=== PATIENT | female | born 1935 | race African-American/Black ===

== ENCOUNTER 2017-03-02 08:41 | Inpatient (IN) | payer MEDICARE, BC ==
[~2017-03-02] VITALS: Ht 167.6 cm; Wt 74.8 kg
[2017-03-02] MEDS ORDERED: VITAMIN D400 INTLU ORAL (08:50)
[2017-03-02] MEDS ORDERED: CITALOPRAM HBR20 M1 ORAL (08:50)
[2017-03-02] MEDS ORDERED: CLOPIDOGREL75 MG ORAL (08:50)
[2017-03-02] MEDS ORDERED: ACETAMINOPHEN120 MG RECTAL (08:50)
[2017-03-02] MEDS ORDERED: ATENOLOL50 MG ORAL (08:50)
[2017-03-02] MEDS ORDERED: QUETIAPINE FUMA50 MG ORAL (08:50)
[2017-03-02] MEDS ORDERED: VITAMIN B-12500 MC2 PO (08:50)
[2017-03-02] MEDS ORDERED: DIOVAN320 MG ORAL (08:50)
[2017-03-02] MEDS ORDERED: DONEPEZIL HCL10 M2 ORAL (08:50)
[2017-03-02] MEDS ORDERED: TYLENOL EXTRA500 MG ORAL (08:50)
[2017-03-02 08:53] VITALS: BP 158/70
[2017-03-02 09:48] VITALS: BP 152/72
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
--- NOTE | 2017-03-02 10:27 | Diagnostic Imaging Report ---
Indications: TRAUMA Technique: Two views of the right femur Comparison: None Findings: There is severe right joint arthropathy, with central joint space narrowing, extensive proliferative change, extensive subchondral sclerosis, and subchondral cysts. No acute fractures. No dislocations. There are mild degenerative changes of the right knee, with medial compartmental mild degenerative joint space narrowing and bicompartmental osteophytes. Impression: No acute bony trauma Right hip arthropathy, most likely degenerative, underlying inflammatory arthropathy not excludable-see discussion on pelvic radiograph report
[2017-03-02] MEDS: Morphine Sulfate 4mg/ml Inj IVP ONE ×2 (10:52→11:01)
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
--- NOTE | 2017-03-02 11:43 | Diagnostic Imaging Report ---
Indication: TRAUMA Technique: One view of the chest Comparison: none Findings: Lungs and pleural spaces are clear. Heart size is normal . The bones are unremarkable Impression: No acute process
[2017-03-02 12:03] LABS: BASOPHILS % (AUTO) 0.8 % (0.0-2.0); EOSINOPHILS % (AUTO) 2.4 % (0.0-3.0); LYMPHOCYTES % (AUTO) 19.9 % (20.0-45.0); MEAN CORPUSCULAR HEMOGLOBIN 29.7 PG (27.0-31.0); MEAN CORPUSCULAR HGB CONC 32.5 G/DL (32.0-36.0); MEAN CORPUSCULAR VOLUME 91 FL (80-99); MEAN PLATELET VOLUME 7.5 FL (6.5-10.1); NEUTROPHILS % (AUTO) 70.9 % (45.0-75.0); PLATELET COUNT 342 K/UL (150-450); RED BLOOD COUNT 3.91 M/UL (4.20-5.40); RED CELL DISTRIBUTION WIDTH 13.4 % (11.6-14.8); WHITE BLOOD COUNT 11.6 K/UL (4.8-10.8)
[2017-03-02 12:24] LABS: INR 0.9 (0.9-1.1); PROTHROMBIN TIME 9.8 SEC (9.30-11.50)
[2017-03-02 12:28] LABS: ALANINE AMINOTRANSFERASE 14 U/L (3-33); ALBUMIN/GLOBULIN RATIO 1.7 (1.0-2.7); ANION GAP 14 (5-15); ASPARTATE AMINO TRANSFERASE 16 U/L (5-40); CALCIUM 9.3 mg/dL (8.6-10.2); CARBON DIOXIDE 26 mEQ/L (20-30); CHLORIDE 102 mEQ/L (98-107); CREATININE 1.1 mg/dL (0.5-0.9); HEMOLYSIS 4; POTASSIUM 3.8 mEQ/L (3.4-4.9); SODIUM 142 mEQ/L (135-145); TOTAL PROTEIN 6.8 g/dL (6.6-8.7)
[2017-03-02 12:29] LABS: TROPONIN I < 0.30 ng/mL (<=0.30)
[2017-03-02 12:39] LABS: APPEARANCE,URINE CLEAR; KETONES,URINE NEGATIVE (NEGATIVE); LEUKOCYTE ESTERASE ,URINE 1+ (NEGATIVE); NITRITE,URINE NEGATIVE (NEGATIVE); PH,URINE 5 (4.5-8.0); PROTEIN,URINE NEGATIVE (NEGATIVE); UROBILINOGEN,URINE NORMAL MG/DL (0.0-1.0)
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
[2017-03-02 13:07] LABS: BACTERIA,URINE FEW /HPF; MUCUS,URINE FEW /LPF (NONE/OCC); SQUAMOUS EPITHELIAL CELL,UR FEW /LPF (NONE/OCC)
--- NOTE | 2017-03-02 14:55 | History & Physical ---
History and Physical History & Physicial he patient fell earlier today. The staff states that it was a non-syncopal fall. The patient has dementia and cannot tell us what happened. She has pain when she attempts to ambulate. The pain is more on her right side that she has bilateral hip pain. There is no head trauma. The patient is not taking blood thinners at this time. The patient is unable to give more history. According to the family she has degenerative arthritis in both hips. It's worse on the right-hand side. She has chronic pain there but usually is able to ambulate with assistance. She is unable to ambulate at this time. Allergies: Coded Allergies: MEMANTINE (Verified Allergy, Unknown, 03/02/17) seen in ER Examined- CC Right hip pain Unable to walk contusion Bradycardia Anemia OBS Depression Arthritis pre DM Plan: Hold beta blockers pain meds PT OT Warm Pack Hydrate per orders # [id number] LUIS CALVO Mar 02, 2017 14:54
[2017-03-02] MEDS ORDERED: HydrALAZINE 25mg tab ORAL PRN (15:15)
[2017-03-02 15:57] VITALS: BP 163/86
[2017-03-02] MEDS ORDERED: Haloperidol 5mg/ml Inj IM ONE (18:00)
[2017-03-02] MEDS: Donepezil 10mg tab ORAL SCH (20:50)
[2017-03-03 04:00] VITALS: BP 130/63
[2017-03-03 06:47] LABS: BASOPHILS % (AUTO) 1.1 % (0.0-2.0); EOSINOPHILS % (AUTO) 3.2 % (0.0-3.0); LYMPHOCYTES % (AUTO) 22.9 % (20.0-45.0); MEAN CORPUSCULAR HEMOGLOBIN 29.8 PG (27.0-31.0); MEAN CORPUSCULAR HGB CONC 32.4 G/DL (32.0-36.0); MEAN CORPUSCULAR VOLUME 92 FL (80-99); MONOCYTES % (AUTO) 6.2 % (1.0-10.0); NEUTROPHILS % (AUTO) 66.7 % (45.0-75.0); PLATELET COUNT 293 K/UL (150-450); RED BLOOD COUNT 3.53 M/UL (4.20-5.40); RED CELL DISTRIBUTION WIDTH 13.4 % (11.6-14.8)
[2017-03-03 06:51] LABS: HEMOGLOBIN A1C 5.7 % (< 6.0)
[2017-03-03 07:37] LABS: CHOLESTEROL 238 mg/dL (< 200); CHOLESTEROL/HDL RATIO 6.6 (3.3-4.4); CRP QUANT 1.6 mg/dL (< 0.5); LDL CHOLESTEROL (CALC.) 165 mg/dL (60-99); MAGNESIUM 1.9 mg/dL (1.7-2.5); PHOSPHORUS 3.5 mg/dL (2.5-4.8); URIC ACID 6.2 mg/dL (3.0-7.5)
[2017-03-03 07:38] LABS: TROPONIN I < 0.30 ng/mL (<=0.30)
[2017-03-03 07:44] LABS: FERRITIN 163 ng/mL (13-150)
[2017-03-03 08:00] VITALS: BP 138/76
[2017-03-03 08:37] LABS: HEMOLYSIS 4; IRON 32 ug/dL (37-145); TOTAL IRON BINDING CAPACITY 231 ug/dL (250-400)
[2017-03-03 10:33] LABS: ALANINE AMINOTRANSFERASE 12 U/L (3-33); ANION GAP 16 (5-15); ASPARTATE AMINO TRANSFERASE 15 U/L (5-40); CALCIUM 8.9 mg/dL (8.6-10.2); CARBON DIOXIDE 23 mEQ/L (20-30); CHLORIDE 103 mEQ/L (98-107); CREATININE 1.1 mg/dL (0.5-0.9); HEMOLYSIS 3; POTASSIUM 4.2 mEQ/L (3.4-4.9); SODIUM 142 mEQ/L (135-145); TOTAL PROTEIN 5.7 g/dL (6.6-8.7)
[2017-03-03] MEDS: Vitamin D 1000 IU Tab ORAL SCH (10:47)
[2017-03-03] MEDS: Haloperidol 5mg/ml Inj IM PRN (10:47)
[2017-03-03] MEDS: Losartan 50mg tab ORAL SCH (10:48)
[2017-03-03] MEDS: Citalopram 20mg Tab ORAL SCH (10:48)
--- NOTE | 2017-03-03 11:02 | General Progress Note ---
Assessment/Plan Status: stable Assessment/Plan status : Right hip pain Unable to walk contusion Bradycardia- improved Anemia- low Iron Others: OBS Depression Arthritis pre DM- HgbA1c WNL Plan: beta blockers on hold- pain meds- Ibuprofen- Gastric support Psych eval PT OT Warm Pack Hydrate per orders Subjective ROS Limited/Unobtainable: No Constitutional: Reports: malaise, weakness Allergies: Coded Allergies: MEMANTINE (Verified Allergy, Unknown, 03/02/17) Objective Last 24 Hour Vital Signs Date Time Temp Pulse Resp B/P Pulse Ox O2 Delivery O2 Flow Rate FiO2 03/03/17 10:48 138/76 03/03/17 08:00 97.3 67 18 138/76 98 Room Air 03/03/17 04:00 97.7 75 20 130/63 97 Room Air 03/02/17 15:57 97.6 61 20 163/86 98 Room Air 03/02/17 14:23 60 17 142/78 99 Room Air Intake and Output 03/02/17 03/03/17 19:00 07:00 Intake Total 100 ml 240 ml Balance 100 ml 240 ml Intake Oral 240 ml IV Total 100 ml # Voids 1 Laboratory Tests 03/02/17 11:50: White Blood Count 11.6H, Red Blood Count 3.91L, Hemoglobin 11.6L, Hematocrit 35.6L, Mean Corpuscular Volume 91, Mean Corpuscular Hemoglobin 29.7, Mean Corpuscular Hemoglobin Concent 32.5, Red Cell Distribution Width 13.4, Platelet Count 342, Mean Platelet Volume 7.5, Neutrophils (%) (Auto) 70.9, Lymphocytes (% ) (Auto) 19.9L, Monocytes (%) (Auto) 6.0, Eosinophils (%) (Auto) 2.4, Basophils (%) (Auto) 0.8, Prothrombin Time 9.8, Prothromb Time International Ratio 0.9, Activated Partial Thromboplast Time 28, Sodium Level 142, Potassium Level 3.8, Chloride Level 102, Carbon Dioxide Level 26, Anion Gap 14, Blood Urea Nitrogen 12, Creatinine 1.1H, Estimat Glomerular Filtration Rate , Glucose Level 123H, Calcium Level 9.3, Total Bilirubin 0.2, Aspartate Amino Transf (AST/SGOT) 16, Alanine Aminotransferase (ALT/SGPT) 14, Alkaline Phosphatase 72, Total Creatine Kinase 183H, Troponin I < 0.30, Pro-B-Type Natriuretic Peptide 208, Total Protein 6.8, Albumin 4.3, Globulin 2.5, Albumin/Globulin Ratio 1.7 03/02/17 12:06: Urine Color Pale yellow, Urine Appearance Clear, Urine pH 5, Urine Specific [place] 1.010, Urine Protein Negative, Urine Glucose (UA) Negative, Urine Ketones Negative, Urine Occult Blood 2+H, Urine Nitrite Negative, Urine Bilirubin Negative, Urine Urobilinogen Normal, Urine Leukocyte Esterase 1+H, Urine RBC 2-4H, Urine WBC 2-4, Urine Squamous Epithelial Cells Few, Urine Bacteria Few, Urine Mucus FewH 03/03/17 05:20: White Blood Count 9.0, Red Blood Count 3.53L, Hemoglobin 10.5L, Hematocrit 32.5L , Mean Corpuscular Volume 92, Mean Corpuscular Hemoglobin 29.8, Mean Corpuscular Hemoglobin Concent 32.4, Red Cell Distribution Width 13.4, Platelet Count 293, Mean Platelet Volume 7.0, Neutrophils (%) (Auto) 66.7, Lymphocytes (% ) (Auto) 22.9, Monocytes (%) (Auto) 6.2, Eosinophils (%) (Auto) 3.2H, Basophils (%) (Auto) 1.1, Sodium Level 142, Potassium Level 4.2, Chloride Level 103, Carbon Dioxide Level 23, Anion Gap 16H, Blood Urea Nitrogen 11, Creatinine 1.1H , Estimat Glomerular Filtration Rate , Glucose Level 110H, Calcium Level 8.9, Total Bilirubin 0.3, Aspartate Amino Transf (AST/SGOT) 15, Alanine Aminotransferase (ALT/SGPT) 12, Alkaline Phosphatase 71, Total Creatine Kinase 292H, Troponin I < 0.30, Pro-B-Type Natriuretic Peptide 226, Total Protein 5.7L , Albumin 3.8, Globulin 1.9, Albumin/Globulin Ratio 2.0, Hemoglobin A1c 5.7, Uric Acid 6.2, Phosphorus Level 3.5, Magnesium Level 1.9, Iron Level 32L, Total Iron Binding Capacity 231L, Percent Iron Saturation 14L, Unsaturated Iron Binding 199, Ferritin 163H, Gamma Glutamyl Transpeptidase 12, C-Reactive Protein , Quantitative 1.6H, Triglycerides Level 187H, Cholesterol Level 238H, LDL Cholesterol 165H, HDL Cholesterol 36, Cholesterol/HDL Ratio 6.6H, Vitamin B12 Level 1553H, Folate [Pending], Thyroid Stimulating Hormone (TSH) 2.810 Height (Feet): 5 Height (Inches): 6.00 Weight (Pounds): 165 General Appearance: no apparent distress, confused Cardiovascular: normal rate Respiratory/Chest: lungs clear Abdomen: soft, other - scars of previous surgery Extremities: other - moving and flexing right leg now LUIS CALVO Mar 03, 2017 11:02
[2017-03-03] MEDS ORDERED: Iron Sucrose 200 MG in NS 110 ML IVPB ONE (12:00)
--- NOTE | 2017-03-03 13:46 | History and Physical Report ---
DATE OF ADMISSION: 03/02/2017 HISTORY OF PRESENT ILLNESS: Son and daughter both available in section 6 of the ER room. This patient is an 81-year-old female, who lives in [place] [facility]. She has her own room. She was found on the floor and not clear how the fall happened. The patient has history of dementia and is a poor historian. The patient came into emergency room here at [facility]. She was seen by and the initial workup showed no fracture, however, contusion of the right hip area. PAST MEDICAL HISTORY: Significant for osteoarthritis of the hips and joints. Previous unknown abdominal surgeries. 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 PHYSICAL EXAMINATION: GENERAL: When the patient was seen, she was poor historian and confused. VITAL SIGNS: Temperature 97.9 degrees, pulse 59, respiratory rate 16, blood pressure 157/89, and pulse oximetry 99% on room air. HEENT: Head, normocephalic. Sclerae are not icteric. Tongue moist. NECK: Rigid to all directions. LUNGS: Clear. HEART: Regular. Bradycardia. ABDOMEN: Soft. Scars of previous surgery present. EXTREMITIES: Lower extremities, no edema. Degenerative joint disease is of the knee. The patient had pain on the right hip area up on pressure and on flexing of the knee. IMPRESSION: Status post fall, contusion of the right hip, and inability to walk. Other immediate conditions anemia and bradycardia. PLAN: Hold beta blockers. Pain medication. Continue on psychiatric medication two prevent syndrome. Warm pack on the right hip area. Slow hydration. Monitor CBC and chemistries. PT/OT evaluation and according to how the patient's condition evolves, we will make the proper changes in our future management. Silvano Butler M.D. DR: BARBARA JOB#: [id number] CC:
[2017-03-03 20:00] VITALS: BP 130/70
[2017-03-03] MEDS: Donepezil 10mg tab ORAL SCH (21:00)
[2017-03-04] VITALS: BP 132/65
[2017-03-04 04:00] VITALS: BP 138/75
[2017-03-04 09:00] VITALS: BP 134/66
[2017-03-04] MEDS ORDERED: Tubing IV Secondary IV ONE (09:20)
[2017-03-04] MEDS: Vitamin D 1000 IU Tab ORAL SCH (09:25)
[2017-03-04] MEDS: Losartan 50mg tab ORAL SCH (09:25)
[2017-03-04] MEDS: Haloperidol 5mg/ml Inj IM PRN (09:25)
[2017-03-04] MEDS: Citalopram 20mg Tab ORAL SCH (09:25)
--- NOTE | 2017-03-04 10:34 | General Progress Note ---
Assessment/Plan Status: doing well Status Narrative walking with PT Assessment/Plan status : Right hip pain Unable to walk contusion Bradycardia- improved Anemia- low Iron Others: OBS Depression Arthritis pre DM- HgbA1c WNL Plan: beta blockers on hold- pain meds- Ibuprofen- Gastric support Psych eval PT OT Warm Pack Hydrate per orders Subjective ROS Limited/Unobtainable: No Allergies: Coded Allergies: MEMANTINE (Verified Allergy, Unknown, 03/02/17) Objective Last 24 Hour Vital Signs Date Time Temp Pulse Resp B/P Pulse Ox O2 Delivery O2 Flow Rate FiO2 03/04/17 09:25 138/75 03/04/17 09:00 97.9 68 19 134/66 95 Room Air 03/04/17 04:00 97.3 78 19 138/75 97 Room Air 03/04/17 00:00 98.2 75 17 132/65 95 Room Air 03/03/17 20:00 97.7 80 18 130/70 97 Room Air 03/03/17 18:09 97.3 03/03/17 10:48 138/76 Intake and Output 03/03/17 03/04/17 19:00 07:00 Intake Total 1060 ml 390 ml Output Total 500 ml Balance 1060 ml -110 ml Intake Oral 840 ml 240 ml IV Total 220 ml 150 ml Output Urine Total 500 ml # Voids 2 1 # Bowel Movements 1 Height (Feet): 5 Height (Inches): 6.00 Weight (Pounds): 165 General Appearance: no apparent distress Cardiovascular: normal rate Respiratory/Chest: lungs clear Abdomen: soft LUIS CALVO Mar 04, 2017 10:34
--- NOTE | 2017-03-04 11:19 | Cardiology Report ---
APPROVED REPORT EKG Measurement Heart [id number] [place] [id number] Sinus bradycardia Low voltage QRS Nonspecific T wave abnormality Abnormal ECG
[2017-03-04 12:00] VITALS: BP 132/68
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
[2017-03-04 16:42] VITALS: BP 145/80
[2017-03-04] MEDS: Donepezil 10mg tab ORAL SCH (20:37)
[2017-03-04 21:00] VITALS: BP 141/96
[2017-03-05] VITALS: BP 135/87
[2017-03-05 04:00] VITALS: BP 137/80
[2017-03-05 07:42] VITALS: BP 151/78
[2017-03-05] MEDS: Losartan 50mg tab ORAL SCH (08:18)
[2017-03-05] MEDS: Citalopram 20mg Tab ORAL SCH (08:18)
[2017-03-05] MEDS: Vitamin D 1000 IU Tab ORAL SCH (08:19)
[2017-03-05 08:49] LABS: EOSINOPHILS % (AUTO) 4.3 % (0.0-3.0); LYMPHOCYTES % (AUTO) 22.3 % (20.0-45.0); MEAN CORPUSCULAR HEMOGLOBIN 30.1 PG (27.0-31.0); MEAN CORPUSCULAR HGB CONC 32.6 G/DL (32.0-36.0); MEAN CORPUSCULAR VOLUME 92 FL (80-99); MEAN PLATELET VOLUME 7.1 FL (6.5-10.1); MONOCYTES % (AUTO) 5.7 % (1.0-10.0); NEUTROPHILS % (AUTO) 66.8 % (45.0-75.0); PLATELET COUNT 311 K/UL (150-450); RED BLOOD COUNT 3.63 M/UL (4.20-5.40); RED CELL DISTRIBUTION WIDTH 13.3 % (11.6-14.8); WHITE BLOOD COUNT 8.2 K/UL (4.8-10.8)
[2017-03-05 08:54] LABS: ALANINE AMINOTRANSFERASE 13 U/L (3-33); ALBUMIN/GLOBULIN RATIO 1.5 (1.0-2.7); ANION GAP 14 (5-15); ASPARTATE AMINO TRANSFERASE 16 U/L (5-40); CALCIUM 9.1 mg/dL (8.6-10.2); CARBON DIOXIDE 25 mEQ/L (20-30); CHLORIDE 103 mEQ/L (98-107); CREATININE 1.1 mg/dL (0.5-0.9); HEMOLYSIS 3; PHOSPHORUS 3.4 mg/dL (2.5-4.8); POTASSIUM 3.7 mEQ/L (3.4-4.9); SODIUM 142 mEQ/L (135-145); TOTAL PROTEIN 6.5 g/dL (6.6-8.7); URIC ACID 5.8 mg/dL (3.0-7.5)
[2017-03-05] MEDS ORDERED: Metoprolol Tartrate 12.5mg TAB ORAL SCH (09:00)
--- NOTE | 2017-03-05 10:18 | General Progress Note ---
Assessment/Plan Status: stable Assessment/Plan status : Right hip pain- much improved Unable to walk on admit- now improved Bradycardia- improved Anemia- low Iron Others: OBS Depression Arthritis pre DM- HgbA1c WNL Plan: DC to assisted living- pain meds- Ibuprofen- prn Gastric support PT OT Warm Pack Subjective ROS Limited/Unobtainable: No Constitutional: Reports: malaise Allergies: Coded Allergies: MEMANTINE (Verified Allergy, Unknown, 03/02/17) Objective Last 24 Hour Vital Signs Date Time Temp Pulse Resp B/P Pulse Ox O2 Delivery O2 Flow Rate FiO2 03/05/17 10:15 77 151/78 03/05/17 08:18 151/78 03/05/17 07:42 98.2 77 20 151/78 99 Room Air 03/05/17 06:52 97.6 03/05/17 04:00 97.8 79 19 137/80 98 Room Air 03/05/17 00:00 97.6 70 19 135/87 98 Room Air 03/04/17 21:00 97.7 75 20 141/96 97 Room Air 03/04/17 16:42 97.0 79 18 145/80 97 Room Air 03/04/17 12:00 97.6 72 18 132/68 94 Room Air Intake and Output 03/04/17 03/05/17 19:00 07:00 Intake Total 320 ml 360 ml Output Total 1700 ml Balance 320 ml -1340 ml Intake Oral 320 ml 360 ml Output Urine Total 1700 ml # Voids 2 4 Current Medications Medications (Trade) Dose Ordered Sig/Bakari Route PRN Reason Start Time Stop Time Status Last Admin Dose Admin Acetaminophen (Tylenol) 650 mg Q6H PRN ORAL Temp > 100.5 03/02/17 15:00 04/01/17 14:59 Atorvastatin Calcium (Lipitor) 10 mg BEDTIME ORAL 03/03/17 21:00 04/02/17 20:59 03/04/17 20:37 Citalopram Hydrobromide (celeXA) 20 mg DAILY ORAL 03/03/17 09:00 04/02/17 08:59 03/05/17 08:18 Clopidogrel Bisulfate (Plavix) 75 mg DAILY ORAL 03/03/17 09:00 04/02/17 08:59 03/05/17 08:19 Donepezil HCl (Aricept) 10 mg QHS ORAL 03/02/17 21:00 04/01/17 20:59 03/04/17 20:37 Haloperidol Lactate (Haldol) 2 mg Q4H PRN IM Agitation 03/02/17 18:00 04/01/17 17:59 03/04/17 09:25 Hydralazine HCl (Apresoline) 25 mg Q4H PRN ORAL bp over 165 syst 03/02/17 15:15 04/01/17 15:14 Ibuprofen (Motrin) 600 mg BEFORE MEALS ORAL 03/02/17 16:30 04/01/17 16:29 03/05/17 05:43 Losartan Potassium (Cozaar) 50 mg DAILY ORAL 03/03/17 09:00 04/02/17 08:59 03/05/17 08:18 Metoprolol Tartrate (Lopressor) 12.5 mg Q12HR ORAL 03/05/17 09:00 04/04/17 08:59 03/05/17 10:15 Pantoprazole (Protonix) 40 mg EVERY 12 HOURS ORAL 03/02/17 21:00 04/01/17 20:59 03/05/17 08:18 Quetiapine Fumarate (SEROquel) 25 mg DAILY ORAL 03/03/17 09:00 04/02/17 08:59 03/05/17 08:18 Quetiapine Fumarate (SEROquel) 50 mg BEDTIME ORAL 03/02/17 21:00 04/01/17 20:59 03/04/17 20:37 Vitamin D (Vitamin D) 1,000 intlu DAILY ORAL 03/03/17 09:00 04/02/17 08:59 03/05/17 08:19 Laboratory Tests 03/05/17 08:00: White Blood Count 8.2, Red Blood Count 3.63L, Hemoglobin 10.9L, Hematocrit 33.5L , Mean Corpuscular Volume 92, Mean Corpuscular Hemoglobin 30.1, Mean Corpuscular Hemoglobin Concent 32.6, Red Cell Distribution Width 13.3, Platelet Count 311, Mean Platelet Volume 7.1, Neutrophils (%) (Auto) 66.8, Lymphocytes (% ) (Auto) 22.3, Monocytes (%) (Auto) 5.7, Eosinophils (%) (Auto) 4.3H, Basophils (%) (Auto) 1.0, Sodium Level 142, Potassium Level 3.7, Chloride Level 103, Carbon Dioxide Level 25, Anion Gap 14, Blood Urea Nitrogen 11, Creatinine 1.1H, Estimat Glomerular Filtration Rate , Glucose Level 145H, Uric Acid 5.8, Calcium Level 9.1, Phosphorus Level 3.4, Total Bilirubin 0.3, Aspartate Amino Transf ( AST/SGOT) 16, Alanine Aminotransferase (ALT/SGPT) 13, Alkaline Phosphatase 69, Total Protein 6.5L, Albumin 3.9, Globulin 2.6, Albumin/Globulin Ratio 1.5 Height (Feet): 5 Height (Inches): 6.00 Weight (Pounds): 165 General Appearance: no apparent distress Cardiovascular: normal rate Respiratory/Chest: lungs clear Abdomen: soft Objective no other changes LUIS CALVO Mar 05, 2017 10:18
[2017-03-05] MEDS ORDERED: COZAAR50 MG ORAL (10:21)
[2017-03-05] MEDS ORDERED: SEROQUEL25 MG ORAL (10:21)
[2017-03-05] MEDS ORDERED: LIPITOR10 MG ORAL (10:21)
[2017-03-05] MEDS ORDERED: LOPRESSOR25 M1 ORAL (10:21)
--- NOTE | 2017-03-05 11:18 | Discharge Instructions ---
Discharge Instructions Discharge Instructions Follow up with: follow up with PMD Follow Up Orders fall precautions For Congestive Heart Failure Reminder Report to your physician any weight gain of 5 pounds or more in one week. LUIS CALVO Mar 05, 2017 11:18
[2017-03-05 13:00] VITALS: BP 135/78
--- NOTE | 2017-03-07 19:08 | Discharge Summary ---
Discharge Summary Hospital Course Date of Admission Mar 02, 2017 at 11:10 Date of Discharge Mar 05, 2017 at 15:19 Admitting Diagnosis right hip contusion HPI Michelle Bravo is a 81 year old female who was admitted on Mar 02, 2017 at 11:10 for Right Hip Contusion Hospital Course [id number] Discharge Discharge Disposition Patient was discharged to Assisted living Discharge Diagnoses: Discharge Instructions Discharge Instructions Follow up with: follow up with Lyudmila Whitney NP Mar 07, 2017 19:08
--- NOTE | 2017-03-08 | Discharge Summary 2 SIG ---
DATE OF ADMISSION: 03/02/2017 DATE OF DISCHARGE: 03/05/2017 LEHR LOADER: Jaquan Fuchs M.D. BRIEF HOSPITAL COURSE: The patient is a 81-year-old female who lives in [facility] who has her own room, was found on the floor, not clear as to how fall happened. The patient has a history of dementia and is a poor historian. She was taken to the ER for further workup and was seen at ED where imaging was done. Initial workup showed no fracture however the patient has a contusion on the right hip area. She was admitted to medical floor for right hip contusion status post fall and inability to walk, anemia, and bradycardia. She was given warm pack, warm compress to the right hip area, and was started on IV hydration. Beta-blockers was placed on hold. Bradycardia improved. She was also given iron supplements. She was seen by Dr. Fuchs and was diagnosed to have delirium and dementia with major depressive disorder. She was given Celexa 20 mg every morning, Seroquel 25 mg every morning, and 50 mg at bedtime. She was tolerating. She was doing well with physical therapy and was eventually discharged back to assisted living. Fall precautions advised. FINAL DIAGNOSES: 1. Right hip contusion status post fall and inability to walk. 2. Iron-deficiency anemia. 3. Bradycardia improved. 4. Dementia. 5. Major depressive disorder. 6. Delirium. 7. Arthritis. 8. Prediabetic. Silvano Butler M.D. I have been assigned to dictate discharge summary on this account and I was not involved in the patient's management. Lyudmila Elder N.P. DR: Emerald JOB#: [id number] CC: KANDI
== END 2017-03-05 15:19 | disposition home or self-care (01) | DRG 605 ==
LOC: EDBD 08:41 → EMR 09:25 → 3E 11:10 → EDBEDREQ 11:21 → 3E 15:06
DX: S70.01XA Contusion of right hip, initial encounter (principal); F03.90 Unspecified dementia, unspecified severity, without behavioral disturbance, psychotic disturbance, mood disturbance, and anxiety; R00.1 Bradycardia, unspecified; R26.2 Difficulty in walking, not elsewhere classified; Z91.81 History of falling; F32.9 Major depressive disorder, single episode, unspecified; W18.30XA Fall on same level, unspecified, initial encounter; Y92.009 Unspecified place in unspecified non-institutional (private) residence as the place of occurrence of the external cause; D50.9 Iron deficiency anemia, unspecified; M16.0 Bilateral primary osteoarthritis of hip; F09 Unspecified mental disorder due to known physiological condition
CPT/HCPCS: 36415; 71010; 72170; 80053; 80061; 81003; 82550; 82607; 82728; 82746; 82977; 83036; 83540; 83550; 83735; 83880; 84100; 84443; 84484; 84550; 85025; 85610; 85730; 86140; 87081; 87086; 87181; 93005; J2405